=== PATIENT | male | born 1990 | race African-American/Black ===

== ENCOUNTER 2024-11-04 07:57 | Outpatient (CLI) | payer OTHER, SELFPAY ==
--- OUTSIDE RECORDS SUMMARY | 2024-11-04 08:04 | XMS_ITS | Patient Health Record ---
Author Organization [facility] , Address [address] [place] [address] Care Team Providers Care Car Repairer Name Role Phone Luis Fernando Howell MD Primary Care Provider UnavailAdrian Anderson Unavailable [phone] ALLERGIES No Known Allergies REASON FOR REFERRAL Reason ORIF Right Trimalleo lar Equivalent Fracture-Eval & Treat-Ankle Fracture Protocol 2-3 x's per week x 4-6 weeks Diagnosis 1 Orthopedic aftercare (Z47.89) Diagnosis 2 Other specified post procedural states (Z98.890) Diagnosis 3 Personal history of (healed) traumatic fracture (Z87.81) Referral Organization [facility] Referring Provider First Name Adrian Referring Provider Last Name Remy Referring Provider Speciality Orthopedic Surgery Referred Provider Specialty Physical The nella General Notes Talisha Coe 09/10/2024 12:40:26 PM > Please call patient to schedule at an ATR facility convienent for him. Thanks! Clinical Notes Talisha Coe 09/10/2024 12:41:19 PM > Ankle Fracture Post-op Rehabilitation Protocol, This protocol provides you with general guidelines for initial stage and progression of, rehabilitation according to specified time frames, related tissue tolerance and directional, preference of movement. Specific changes in the program will be made by the, physician as appropriate for the individual patient., REMEMBER: It can take up to a year to make a full recovery, and it is not unusual to, have intermittent pains and aches during that time!, General Guidelines:, 1. Increase Dorsiflexion - to restore gait, 2. Monitor PAIN and SWELLING, - If either increase, modify rehab, - OROZCO, - Ankle Pumps, - E-stim if Needed, Goals:, - PWB involved LE with or without one crutch for the first 2 weeks, - DF to neutral, - Control edema, Initiate weight-bearing as tolerated with crutches, 2. AROM for ankle, subtalar, midtarsal joints within pain tolerance, - ankle pumps, - inversion / eversion, - toe crunches, - ankle alphabet, 3. Towel stretch for DF, 4. E-stim with elevation for edema, 5. Retrograde massage, 6. Full Weight bearing without crutches in boot over the next 3 weeks, Phase II (after 8 weeks s/p ORIF):, Goals:, - FWB involved LE, - > 50% AROM all planes involved ankle and subtalar joint, - Control edema, - Minimize complications, - Maintain optimal bone and soft tissue healing environment, 1. Gait training level surfaces with proper tibia advancement, quads activation, , symmetrical weight-bearing, 2. Stationary bike, 3. Grade 1-2 joint mobilizations ankle and subtalar joints, 4. PROM into restricted ranges, 5. Retrograde massage for edema, 6. Continue DF stretches, 7. Theraband DF/PF/inv/ev in open chain, 8. Seated heel raise and BAPS, 9. Manual resistance in open chain for DF/PF/inv/ev and multiplanar motions, 10. Leg extension, 11. Leg Curl, 12. Leg Press, 13. Wall stretch with knee flexed and extended, 14. When FWB:, - Standing BAPS 2 legs, - Standing heel raise, - Minisquat, - One leg balance on floor, Phase III (>10 weeks s/p ORIF):, Goals:, - Full ankle and subtalar AROM, flexibility, - Restore gait on level surfaces, hills, stairs, - Full return to function, 1. CKC theraband exercises (stand on involved leg and perform hip flex/ext/abd/add, with uninvolved LE), 2. BAPS knees bent, - eyes closed, - one leg, 3. Storking, - Eyes open, - Eyes closed, - Floor , - Mat, 4. Standing balance progress:, - Eyes open, - Eyes closed, - Floor , - Mat, - Level, - Incline, - Decline, - with knee flex/ext, 5. Continue phase 2 ex's, 6. Stairmaster, 7. Agility ex's, - Karioke, - Lateral shuffles, - Tandem Walking, 8. Continue gait training, 9. Continue modalities prn, 10. Sport and Job - specific training Referral Priority Routine MEDICATIONS Medication SIG (Take, Route, Frequency, Duration) Notes Start Date End Date Status Valsartan Active Albuterol Active PROBLEMS Problem Type ICD Code Onset Dates Problem Status W/U Status Risk SNOMED Code Notes Problem Injury of right ankle, initial encounter (S99.911A) Active confirmed [id number] Problem Other specified postprocedural states (Z98.890) Active confirmed 604253703 Problem Personal history of (healed) traumatic fracture (Z87.81) Active confirmed 879663686 Problem Orthopedic aftercare (Z47.89) Active confirmed 746161682 Problem Presence of other bone and tendon implants (Z96.7) Active confirmed Presence of orthopedic joint implant (069261032) VITAL SIGNS Height 5'11 in 10/08/2024 Weight 310 lbs 10/08/2024 BMI 43.23 kg/m2 10/08/2024 PROCEDURES Procedure Date Ordered Date Performed Result Body Sit e DME_Walker Boot Tall (L4360) 09/10/2024 N/A Encounters Encounter Location Date Provider Diagnosis [facility] [address] [address] [facility] [place] [address] [address] 07/21/2024 Adrian Remy Injury of right ankl e, initial encounter S99.911A ; Closed trimalleolar fracture of right ankle, initial encounter S82.851A and Ankle fracture, right S82.891[facility] [place] [address] [address] 10/08/[address] [facility] [place] [address] [address] 08/12/2024 Adrian Remy Orthopedic aftercare Z47.89 ; Presence of other bone and tendon implants Z96.7 and Ankle pain, right M25.571 [facility] [address] [facility] [address] [place] [address] 09/10/2024 [facility] Orthopedic aftercare Z47.89 ; Presence of other bone and tendon implants Z96.7 and Ankle pain, right M25.571 [facility] [address] [facility] [address] [place] [address] 10/08/2024 [facility] Orthopedic aftercare Z47.89 ; Presence of other bone and tendon implants Z96.7 and Ankle pain, right M25.571 [facility], [address] [facility] [address] [place] [address] 07/23/2024 [facility] [address] [place] [address] 07/26/2024 [facility] ASSESSMENTS Encounter Date Diagnosis Assessment Notes Treatment Notes Treatment Clinical Notes 07/21/2024 Injury of right ankle, initial encounter (ICD-10 - S99.911A) 07/21/2024 Closed trimalleolar fracture of right ankle, initial encounter (ICD-10 - S82.851A) 08/12/2024 Orthopedic aftercare (ICD-10 - Z47.89) Skin sutures were removed and Steri-Strips applied 1. A short leg nonweightbearing cast was applied with the ankle joint in dorsiflexion, made of plaster material. Cast precautions were given and I was present during the application of the cast. We discussed importance of elevation, signs and symptoms of compartment syndrome. 2. Continue nonweightbearing as instructed on the operative extremity. 3. Follow-up in 4 weeks for Cast removal 4. At the next visit I anticipate dispensing a walking boot with physical therapy prescription 5. Please obtain WB ankle xrays. 6. The patient will contact our office if there is any problems or concerns in the interim. Discussed that swelling is normal at this time in the postop period and may persist months after the procedure but will continue to decrease as they heal. Reviewed post-operative course and post-operative instructions for home care were reviewed in detail. Patient voiced understanding of the condition, home care, and expected healing, and was happy with this treatment plan. Patient is to return to the office in 4 week for further post operative care and was instructed to contact the office sooner if any problems arise. 09/10/2024 Orthopedic aftercare (ICD-10 - Z47.89) Plan: 1. Pt was placed in a Cam walking boot today. Pt can take the boot off for showers, sleep, and range of motion exercises. 2. Pt was provided a physical therapy prescription for range of motion exercises and band strengthening. Pt can progress to weight-bearing exercises as the weight-bearing progresses. 3. Begin gradual WB with PT as tolerated 4. Follow-up in 4 weeks for repeat evaluation and x-rays 5. The patient will contact our office if there is any problems or concerns in the interim. Discussed that swelling is normal at this time in the postop period and may persist months after the procedure but will continue to decrease as they heal. Reviewed post-operative course and post-operative instructions for home care were reviewed in detail. Patient voiced understanding of the condition, home care, and expected healing, and was happy with this treatment plan. Patient is to return to the office in 4 week for further post operative care and was instructed to contact the office sooner if any problems arise. 09/10/2024 Presence of other bone and tendon implants (ICD-10 - Z96.7) 10/08/2024 Orthopedic aftercare (ICD-10 - Z47.89) 10/08/2024 Presence of other bone and tendon implants (ICD-10 - Z96.7) 07/21/2024 Ankle fracture, right (ICD-10 - S82.891A) 08/12/2024 Presence of other bone and tendon implants (ICD-10 - Z96.7) 09/10/2024 Ankle pain, right (ICD-10 - M25.571) 10/08/2024 Ankle pain, right (ICD-10 - M25.571) 08/12/2024 Ankle pain, right (ICD-10 - M25.571) 07/21/2024 Other three views of the right ankle were obtained independently interpreted by me today. These are weight-bearing views. They demonstrate a bimalleolar equivalent ankle fracture with a small posterior malleolar piece. Stress views of the right ankle were obtained and independently interpreted by me today. They demonstrate widening of the mortise and decreased tib-fib overlap with increase tip the clear space. PLAN: We reviewed the patient history, physical exam finding, radiographic findings and recommend the following: At this time it appears that the patient has a Right trimalleolar equivalent ankle fracture. This appears to be unstable. I did recommend surgical intervention for this. This would be an open reduction and fixation of he had a right ankle, syndesmosis repair, possible deltoid repair. We will attempt to fix this on on Friday since that is when we have the operating room time, if the skin looks amenable for surgery. I recommended aggressive elevation and icing to help with this. 2. Patient is interested in pursuing surgical intervention for this. I think that is a reasonable option. 3. Pt was placed back in a boot. 4. We did obtain a stat CT scan to further evaluate the posterior malleolus and evaluate for any other intra-articular pathology. The risks, goals and alternatives the procedure as well as the expected postoperative course, rehab and realistic expectations were discussed in detail with the patient. Risks including but not limited to bleeding, infection, nerve or muscle injury, need for reoperation, risk of development of posttraumatic arthritis in the future, nonunion, malunion and recurrence of deformity and risks associated with anesthesia also discussed. The expected postoperative course was discussed in detail. We have discussed expectations after surgery to include expected physical therapy, anticipated shoe wear and the expected duration of swelling. All their questions were answered, they understand and wish to proceed. All questions were answered. Patient was in agreement with the plan. Patient was encouraged to call us if there is no improvement in symptoms, worsening of symptoms or have any questions or concerns. 08/12/2024 Other three views of the right ankle were obtained and independently interpreted by me today. These are nonweightbearing views. They demonstrate status post right distal fibula ORIF with syndesmotic fixation. Hardware appears to be well aligned. The mortise seems to be well-maintained. 09/10/2024 Other Radiographs of the right ankle were obtained and independently interpreted by me today. They demonstrate status post ORIF right distal fibula fracture with syndesmotic fixation. Mortise is well-maintained. Healing fracture. 10/08/2024 Other Three weightbearing views of the Right ankle were obtained and independently interpreted by me today. They demonstrate status post ORIF of right ankle. Hardware appears to be intact. Mortise appears to be intact and syndesmosis appears to be intact. Fracture is fully healed. Humberto Has done very well with operative intervention for his unstable Ruiz B distal fibula fracture. He seems to be progressing along well with therapy. He has unfortunately gone to only 4 therapy visits as it is been financially draining for him. As a result of that he has some tightness over his posterior column which I recommended that he work aggressively at home. I think it is okay to go to therapy as much as he can afford to go to in the rest he can do at home. I think overall he looks well clinically and he should slowly be able to return back to full activities as tolerated as long as he continues to work on it at home. No concerns from my end. Follow up with me in 6 weeks for repeat weight-bearing radiographs. Plan: 1. Pt was placed in a Cam walking boot today. Pt can take the boot off for showers, sleep, and range of motion exercises. 2. Pt was provided a physical therapy prescription for range of motion exercises and band strengthening. Pt can progress to weight-bearing exercises as the weight-bearing progresses. 3. Begin gradual WB with PT as tolerated 4. Follow-up in 4 weeks for repeat evaluation and x-rays 5. The patient will contact our office if there is any problems or concerns in the interim. Discussed that swelling is normal at this time in the postop period and may persist months after the procedure but will continue to decrease as they heal. Reviewed post-operative course and post-operative instructions for home care were reviewed in detail. Patient voiced understanding of the condition, home care, and expected healing, and was happy with this treatment plan. Patient is to return to the office in 4 week for further post operative care and was instructed to contact the office sooner if any problems arise. 10/08/2024 Other X-rays of the ankle were obtained and independently interpreted by me today. They demonstrate a stable healing distal fibula fracture with syndesmosis ORIF. Mortise and syndesmosis appear to be well-maintained. PLAN OF TREATMENT Pending Test Test Name Order Date X ray : Ankle 3 views R, AP, Oblique, La teral 08/12/2024 X ray : Ankle 3 views R, AP, Oblique, La teral 09/10/2024 X ray : Ankle 3 views R, AP, Oblique, La teral 10/08/2024 X ray : Ankle 3 views R, AP, Oblique, La teral 07/21/2024 DME_Walker Boot Tall (L4360) 09/10/2024 CT Scan: Right Ankle 07/21/2024 Next Appt Details Provider Name:Adrian Alberto, 11/12/2024 08:15:00 AM, [address], [facility] [address], [place], [address], Insurance Providers Payer Name Payer Address Payer Phone Subscriber Number Group Number Insured Name Patient Relationship to Insured Coverage Start Date Coverage End Date [employer] [address] [place] [phone] [id number] Humberto Elliott Self - patient is the insured MEDICAL (GENERAL) HISTORY Medical History History ICD Code HTN Asthma Surgical History Surgery Date(Month/Year) ORIF Right Trimalleolar Equivalent Fract ure 07/26/2024
--- OUTSIDE RECORDS SUMMARY | 2024-11-04 08:04 | XMS_ITS ---
Author Organization [facility], Address [address] [address] Care Team Providers Care Finance Controller Name Role Phone Luis Fernando Howell MD Primary Care Provider UnavailAdrian Anderson Unavailable [phone] REASON FOR VISIT ORIF Right Trimalleolar Ankle Fracture F/U MEDICATIONS Medication SIG (Take, Route, Frequency, Duration) Notes Start Date End Date Status Albuterol Active Valsartan Active VITAL SIGNS BMI 43.23 kg/m2 10/08/2024 Height 5'11 in 10/08/2024 Weight 310 lbs 10/08/2024 Encounters Encounter Location Date Provider Diagnosis [facility] [place] [address] [facility] [address] [address] 10/08/2024 Adrian Alberto Orthopedic aftercar e Z47.89 ; Presence of other bone and tendon implants Z96.7 and Ankle pain, right M25.571 ASSESSMENTS Encounter Date Diagnosis Assessment Notes Treatment Notes Treatment Clinical Notes 10/08/2024 Orthopedic aftercare (ICD-10 - Z47.89) 10/08/2024 Presence of other bone and tendon implants (ICD-10 - Z96.7) 10/08/2024 Ankle pain, right (ICD-10 - M25.571) 10/08/2024 Other Three weightbearing views of the [...] the office sooner if any problems arise. PLAN OF TREATMENT Pending Test Test Name Order Date X ray : Ankle 3 views R, AP, Oblique, La teral 10/08/2024 Next Appt Details Follow Up: 4 Weeks, 6 Weeks, Reason: Provider Name:Adrian Alberto, 11/12/2024 08:15:00 AM, [address], [facility] [address], [place], [address],
--- OUTSIDE RECORDS SUMMARY | 2024-11-04 08:04 | XMS_ITS | Continuity of Care Document ---
Author Organization [facility] Address [address] [facility] [address] [place] [address] Phone Care Team Providers Care Hardboard Panel Printer Name Role Phone [place] OD, Reji Unavailable Unavailable Advance Directives Directive Yes / No Effective Date File Name No Information Encounters Encounter Description Practice Location Reason(s) For Visit Diagnoses Date Provider Providers Copied on Encounter [facility], [address], [place], [place], [id number], [place] tel:[phone] [facility] [place] No Information 1-200 0 Hat[place] OD Reji. [address] , [address], [place], [address], [place]. tel:[phone] Family History Family Member Type Diagnosis Age At Onset No Information Payers Payer name Insurance type Covered alliance party ID Authoriza tion(s) Medicaid [facility] [id number] Social History Type Description Quantity Date Captured Comments Sex Male Smoking Status No Information Chief Complaint And Reason For Visit No Information Reason For Referral Reason For Referral No Information History Of Present Illness Encounter Date Complaint History Of Prese nt Illness No Information Functional Status Date Functional Assessmen t No Information Instructions Date Instruction Additional Infor mation No Information Assessments Type Assessment Date No Information Patient Care Teams Name Effective Dates (start - stop) Status Members No Information
--- OUTSIDE RECORDS SUMMARY | 2024-11-04 08:04 | XMS_ITS ---
Author Organization [facility], Address [address] [facility] [address] [place] [address] Care Team Providers Care Attending Psychiatrist Name Role Phone Luis Fernando Howell MD Primary Care Provider Unavailab Adrian Olvera Unavailable [phone] Encounters Encounter Location Date Provider Diagnosis [facility] [address] [facility] [address] [place] [address] 09/10/2024 Adrian Alberto PLAN OF TREATMENT Next Appt Details Provider Name:Adrian Alberto, 11/12/2024 08:15:00 AM, [address], [address], [place], [address],
--- OUTSIDE RECORDS SUMMARY | 2024-11-04 08:04 | XMS_ITS ---
Author Organization [facility], Address [address] [facility] [address] [place] [address] Care Team Providers Care Social Services Specialist Name Role Phone Luis Fernando Howell MD Primary Care Provider UnavailAdrian Anderson Unavailable [phone] REASON FOR VISIT FMLA MEDICATIONS Medication SIG (Take, Route, Frequency, Duration) Notes Start Date End Date Status Valsartan Active Albuterol Active VITAL SIGNS BMI 43.23 kg/m2 10/08/2024 Height 5'11 in 10/08/2024 Weight 310 lbs 10/08/2024 Encounters Encounter Location Date Provider Diagnosis [facility] [place] [address] [facility] [address] [place] [address] 10/08/2024 Adrian Alberto ASSESSMENTS Encounter Date Diagnosis Assessment Notes Treatment Notes Treatment Clinical Notes 10/08/2024 Other X-rays of the ankle were obtained and independently interpreted by me today. They demonstrate a stable healing distal fibula fracture with syndesmosis ORIF. Mortise and syndesmosis appear to be well-maintained. PLAN OF TREATMENT Next Appt Details Follow Up: 6 Weeks, Reason: Provider Name:Adrian Alberto, 11/12/2024 08:15:00 AM, [address], [address], [place], [address],
--- OUTSIDE RECORDS SUMMARY | 2024-11-04 08:04 | XMS_ITS | Data Portability ---
[facility] Address [address] [place] [address] Assessment No assessment recorded. Plan of Treatment Reminders Order Date Submit Date Provider Last Modified By Organization Details Last Modified Time Details Appointments None recorded. Lab HbA1c (hemoglobin A1c), blood 2023 024 [facility], [address], [place], [address], 4 15:24:14 CBC w/ auto diff 2023 024 [facility], [address], [place], [address], 4 15:24:13 lipid panel, serum 2023 024 [facility], [address], [place], [address], 4 14:22:24 lipid panel, serum 2023 024 [facility], [address], [place], [address], 4 15:24:13 CMP, serum or plasma 2023 024 [facility], [address], [place], [address], 4 15:24:13 urinalysis, dipstick 2023 024 [facility], [address], [place], [address], 4 15:24:13 25-hydroxyv itamin D2 + 25-hydroxyv itamin D3, QN, serum or plasma 2023 024 [facility], [address], [place], [address], 4 12:49:38 TSH, ultra-sensi tive, serum 2023 024 [facility], [address], [place], [address], 4 15:24:13 RPR (rapid plasma reagin), serum 2023 024 [facility] [address], [place], [address], 4 09:53:36 HIV 1 + 2, meaningful use set 2023 024 [facility], [address], [place], [address], 4 09:53:41 CT + NG RNA, PCR, unspecified specimen 2023 024 [facility], [address], [place], [address], 4 09:53:46 HBsAg (hepatitis B surface Ag), EIA, serum 2023 024 [facility], [address], [place], [address], 4 22:07:02 hsv (1+2) igg, serum 2023 024 [facility], [address], [place], [address], 4 10:15:13 Referral sleep medicine referral - Hx of HTN, snorer with apneic episodes 2023 024 THOMAS Hutchinson MD, [address] [facility], [place], [address], 18:58:29 Procedures None recorded. Surgeries None recorded. Imaging None recorded. Medication Orders valsartan 320 mg-hydrochl orothiazide [address] [facility] #[id number], [address], [place], [address], 4 10:05:23 Ventolin HFA 90 mcg/actuati on aerosol inhaler [address] [facility] #[id number], [address], [place], [address], 4 13:18:06 valsartan 320 mg-hydrochl orothiazide 12.5 mg tablet 2023 024 [facility]/Pharmacy #[id number], [address], [place], [address], 4 10:07:12 valsartan 160 mg-hydrochl orothiazide 12.5 mg tablet 2023 [facility]24 [id number], [address], [place], [address], 4 13:18:10 Patient TargetsNo targets recorded. Patient Instructions Encounter Date Encounter Id Patient Instructions Last Modified By Organization Details Last Modified Time 08/21/2023 [id number] body mass index: care instructions oajao Not available 08/21/2023 16:17:16 learning about healthy weight oajao Not available 08/21/2023 16:17:16 snoring: care instructions oajao Not available 08/21/2023 16:13:44 Valsartan/HCTZ 160/12.5 Labs Follow up in 3 weeks and PRN oajao Not available 08/21/2023 16:18:04 Compliance was reinforced oajao Not available 08/21/2023 21:49:56 02/06/2024 [id number] Follow up in 3-4 weeks oajao Not available 02/06/2024 13:19:14 06/01/2024 [id number] influenza (flu) vaccine: care instructions oajao Not available 06/01/2024 10:55:14 Increase Valsartan/HCTZ to 320/25 Sleep medicine as referred Follow up in 2 weeks oajao Not available 06/01/2024 12:28:18 Reason for Referral Sleep Medicine Referral for Apnea Hx of HTN, snorer with apneic episodes Hx of HTN, snorer with apneic episodes Referring Physician: Luis Fernando Howell, Internal Medicine, Encounter Date: 08/21/2023 Results Created Date Observation Date Name Description Value Unit Range Abnormal Flag Note LastModifiedBy Organization Detail LastModifiedTime 12/29/19 22 12/29/2021 CBC WITH DIFFE RENTI AL/PL ATELE T WBC 4.5 x10e3 /uL 3.4-10 .8 Not Available [facility] ([facility]) [address] [place], [address], 12/29/2021 08:15:45 12/29/19 22 12/29/2021 CBC WITH DIFFE RENTI AL/PL ATELE T RBC 5.08 x10e6 /uL 4.14-5 .80 Not Available [facility] ([facility]) [address] [place], [address], 12/29/2021 08:15:45 12/29/19 22 12/29/2021 CBC WITH DIFFE RENTI AL/PL ATELE T hemoglobin 16.1 g/dL 13.0-1 7.7 Not Available [facility] ([facility]) [address] [place], [address], 12/29/2021 08:15:45 05/20/20 22 12/29/2021 CBC WITH DIFFE RENTI AL/PL ATELE T hematocrit 48.6 % 37.5-5 1.0 Not Available [facility] ([facility]) [address] [facility], [place], [address], 12/29/2021 08:15:45 12/29/19 22 12/29/2021 CBC WITH DIFFE RENTI AL/PL ATELE T MCV 96 fL 79-97 Not Available [facility] ([facility]) [address] [facility], [place], [address], 12/29/2021 08:15:45 12/29/19 22 12/29/2021 CBC WITH DIFFE RENTI AL/PL ATELE T MCH 31.7 pg 26.6-3 3.0 Not Available [facility] ([facility]) [address] [facility], [place], [address], 12/29/2021 08:15:45 12/29/19 22 12/29/2021 CBC WITH DIFFE RENTI AL/PL ATELE T MCHC 33.1 g/dL 31.5-3 5.7 Not Available [facility] ([facility]) [address] [facility], [place], [address], 12/29/2021 08:15:45 12/29/19 22 12/29/2021 CBC WITH DIFFE RENTI AL/PL ATELE T RDW 12.9 % 11.6-1 5.4 Not Available [facility] ([facility]) [address] [place], [address], 12/29/2021 08:15:45 12/29/19 22 12/29/2021 CBC WITH DIFFE RENTI AL/PL ATELE T platelets 238 x10e3 /uL 150-45 0 Not Available [facility] ([facility]) [address] [place], [address], 12/29/2021 08:15:45 12/29/19 22 12/29/2021 CBC WITH DIFFE RENTI AL/PL ATELE T neutrophils 33 % not estab. Not Available [facility] ([facility]) [address] [facility], [place], [address], 12/29/2021 08:15:45 12/29/19 22 12/29/2021 CBC WITH DIFFE RENTI AL/PL ATELE T lymphs 54 % not estab. Not Available [facility] ([facility]) [address] [facility], [place], [address], 12/29/2021 08:15:45 12/29/19 22 12/29/2021 CBC WITH DIFFE RENTI AL/PL ATELE T monocytes 8 % not estab. Not Available [facility] ([facility]) [address] [facility], [place], [address], 12/29/2021 08:15:45 12/29/19 22 12/29/2021 CBC WITH DIFFE RENTI AL/PL ATELE T eos 4 % not estab. Not Available [facility] ([facility]) [address] [facility], [place], [address], 12/29/2021 08:15:45 12/29/19 22 12/29/2021 CBC WITH DIFFE RENTI AL/PL ATELE T basos 1 % not estab. Not Available [facility] ([facility]) [address] [facility], [place], [address], 12/29/2021 08:15:45 12/29/19 22 12/29/2021 CBC WITH DIFFE RENTI AL/PL ATELE T immature cells ROUSTABOUT CREW Not Available [facility] ([facility]) [address] [facility], [place], [address], 12/29/2021 08:15:45 12/29/19 22 12/29/2021 CBC WITH DIFFE RENTI AL/PL ATELE T neutrophils (absolute) 1.5 x10e3 /uL 1.4-7. 0 Not Available [facility] ([facility]) [address] [facility], [place], [address], 12/29/2021 08:15:45 12/29/19 22 12/29/2021 CBC WITH DIFFE RENTI AL/PL ATELE T lymphs (absolute) 2.5 x10e3 /uL 0.7-3. 1 Not Available [facility] ([facility]) [address] [facility], [place], [address], 12/29/2021 08:15:45 12/29/19 22 12/29/2021 CBC WITH DIFFE RENTI AL/PL ATELE T monocytes(ab solute) 0.4 x10e3 /uL 0.1-0. 9 Not Available [facility] ([facility]) [address] [facility], [place], [address], 12/29/2021 08:15:45 12/29/19 22 12/29/2021 CBC WITH DIFFE RENTI AL/PL ATELE T eos (absolute) 0.2 x10e3 /uL 0.0-0. 4 Not Available [facility] ([facility]) [address] [place], [address], 12/29/2021 08:15:45 12/29/19 22 12/29/2021 CBC WITH DIFFE RENTI AL/PL ATELE T baso (absolute) 0.0 x10e3 /uL 0.0-0. 2 Not Available [facility] ([facility]) [address] [facility], [place], [address], 12/29/2021 08:15:45 12/29/19 22 12/29/2021 CBC WITH DIFFE RENTI AL/PL ATELE T immature granulocytes 0 % not estab. Not Available [facility] ([facility]) [address] [facility], [place], [address], 12/29/2021 08:15:45 12/29/19 22 12/29/2021 CBC WITH DIFFE RENTI AL/PL ATELE T immature grans (abs) 0.0 x10e3 /uL 0.0-0. 1 Not Available [facility] ([facility]) [address] [facility], [place], [address], 12/29/2021 08:15:45 12/29/19 22 12/29/2021 CBC WITH DIFFE RENTI AL/PL ATELE T NRBC ROUSTABOUT CREW Not Available [facility] ([facility]) [address] [facility], [place], [address], 12/29/2021 08:15:45 12/29/19 22 12/29/2021 CBC WITH DIFFE RENTI AL/PL ATELE T hematology comments: ROUSTABOUT CREW Not Available [facility] ([facility]) [address] [place], [address], 12/29/2021 08:15:45 12/29/19 22 12/29/2021 COMP. METAB OLIC PANEL (14) glucose 85 mg/dL 65-99 Not Available [facility] ([facility]) [address] [place], [address], 12/29/2021 08:15:45 12/29/19 22 12/29/2021 COMP. METAB OLIC PANEL (14) BUN 12 mg/dL 6-20 Not Available [facility] ([facility]) [address] [place], [address], 12/29/2021 08:15:45 12/29/19 22 12/29/2021 COMP. METAB OLIC PANEL (14) creatinine 1.05 mg/dL 0.76-1 .27 Not Available [facility] ([facility]) [address] [place], [address], 12/29/2021 08:15:45 12/29/19 22 12/29/2021 COMP. METAB OLIC PANEL (14) eGFR 98 mL/mi n/1.7 3 >59 Not Available [facility] ([facility]) [address] [place], [address], 12/29/2021 08:15:45 12/29/19 22 12/29/2021 COMP. METAB OLIC PANEL (14) BUN/creatini ne ratio 11 9-20 Not Available [facility] ([facility]) [address] [facility], [address], 12/29/2021 08:15:45 12/29/19 22 12/29/2021 COMP. METAB OLIC PANEL (14) sodium 139 mmol/ L 134-14 4 Not Available [facility] ([facility]) [address] [facility] [place], [address], 12/29/2021 08:15:45 12/29/19 22 12/29/2021 COMP. METAB OLIC PANEL (14) potassium 4.6 mmol/ L 3.5-5. 2 Not Available [facility] ([facility]) [address] [facility] [place], [address], 12/29/2021 08:15:45 12/29/19 22 12/29/2021 COMP. METAB OLIC PANEL (14) chloride 100 mmol/ L 96-106 Not Available [facility] ([facility]) [address] [facility] [place], [address], 12/29/2021 08:15:45 12/29/19 22 12/29/2021 COMP. METAB OLIC PANEL (14) carbon dioxide, total 23 mmol/ L 20-29 Not Available [facility] ([facility]) [address] [facility] [place], [address], 12/29/2021 08:15:45 12/29/19 22 12/29/2021 COMP. METAB OLIC PANEL (14) calcium 9.4 mg/dL 8.7-10 .2 Not Available [facility] ([facility]) [address] [facility] [place], [address], 12/29/2021 08:15:45 12/29/19 22 12/29/2021 COMP. METAB OLIC PANEL (14) protein, total 7.2 g/dL 6.0-8. 5 Not Available [facility] ([facility]) [address] [facility], [place], [address], 12/29/2021 08:15:45 12/29/19 22 12/29/2021 COMP. METAB OLIC PANEL (14) albumin 4.7 g/dL 4.1-5. 2 Not Available [facility] ([facility]) [address] [facility], [place], [address], 12/29/2021 08:15:45 12/29/19 22 12/29/2021 COMP. METAB OLIC PANEL (14) globulin, total 2.5 g/dL 1.5-4. 5 Not Available [facility] ([facility]) [address] [facility], [place], [address], 12/29/2021 08:15:45 12/29/19 22 12/29/2021 COMP. METAB OLIC PANEL (14) A/G ratio 1.9 1.2-2. 2 Not Available [facility] ([facility]) [address] [facility], [place], [address], 12/29/2021 08:15:45 12/29/19 22 12/29/2021 COMP. METAB OLIC PANEL (14) bilirubin, total 0.7 mg/dL 0.0-1. 2 Not Available [facility] ([facility]) [address] [facility], [place], [address], 12/29/2021 08:15:45 12/29/19 22 12/29/2021 COMP. METAB OLIC PANEL (14) alkaline phosphatase 83 IU/L 44-121 Not Available [facility] ([facility]) [address] [facility], [place], [address], 12/29/2021 08:15:45 12/29/19 22 12/29/2021 COMP. METAB OLIC PANEL (14) AST (SGOT) 20 IU/L 0-40 Not Available [facility] ([facility]) [address] [facility] [place], [address], 12/29/2021 08:15:45 12/29/19 22 12/29/2021 COMP. METAB OLIC PANEL (14) ALT (SGPT) 22 IU/L 0-44 Not Available [facility] ([facility]) [address] [facility], [place], [address], 12/29/2021 08:15:45 12/29/19 22 12/29/2021 URINA LYSIS , COMPL ETE specific gravity 1.028 1.005- 1.030 Not Available [facility] ([facility]) [address] [facility], [place], [address], 12/29/2021 08:15:46 12/29/19 22 12/29/2021 URINA LYSIS , COMPL ETE pH 7.0 5.0-7. 5 Not Available [facility] ([facility]) [address] [facility], [place], [address], 12/29/2021 08:15:46 12/29/19 22 12/29/2021 URINA LYSIS , COMPL ETE urine-color Yellow yellow Not Available [facility] ([facility]) [address] [facility], [place], [address], 12/29/2021 08:15:46 12/29/19 22 12/29/2021 URINA LYSIS , COMPL ETE appearance Clear clear Not Available [facility] ([facility]) [address] [facility], [address], 12/29/2021 08:15:46 12/29/19 22 12/29/2021 URINA LYSIS , COMPL ETE WBC esterase Negati ve negati ve Not Available [facility] ([facility]) [address] [facility], [place], [address], 12/29/2021 08:15:46 12/29/19 22 12/29/2021 URINA LYSIS , COMPL ETE protein Trace negati ve/tra ce Not Available [facility] ([facility]) [address] [place], [address], 12/29/2021 08:15:46 12/29/19 22 12/29/2021 URINA LYSIS , COMPL ETE glucose Negati ve negati ve Not Available [facility] ([facility]) [address] [place], [address], 12/29/2021 08:15:46 12/29/19 22 12/29/2021 URINA LYSIS , COMPL ETE ketones Negati ve negati ve Not Available [facility] ([facility]) [address] [place], [address], 12/29/2021 08:15:46 12/29/19 22 12/29/2021 URINA LYSIS , COMPL ETE occult blood Negati ve negati ve Not Available [facility] ([facility]) [address] [place], [address], 12/29/2021 08:15:46 12/29/19 22 12/29/2021 URINA LYSIS , COMPL ETE bilirubin Negati ve negati ve Not Available [facility] ([facility]) [address] [place], [address], 12/29/2021 08:15:46 12/29/19 22 12/29/2021 URINA LYSIS , COMPL ETE urobilinogen ,semi-qn 1.0 mg/dL 0.2-1. 0 Not Available [facility] ([facility]) [address] [place], [address], 12/29/2021 08:15:46 12/29/19 22 12/29/2021 URINA LYSIS , COMPL ETE nitrite, urine Negati ve negati ve Not Available [facility] ([facility]) [address] [place], [address], 12/29/2021 08:15:46 12/29/19 22 12/29/2021 URINA LYSIS , COMPL ETE microscopic examination Commen t Micro scopi c follo ws if indic ated. Not Available [facility] ([facility]) [address] [facility], [place], [address], 12/29/2021 08:15:46 12/29/19 22 12/29/2021 URINA LYSIS , COMPL ETE microscopic examination See below: Micro scopi c was indic ated and was perfo rmed. Not Available [facility] ([facility]) [address] [facility], [place], [address], 12/29/2021 08:15:46 12/29/19 22 12/29/2021 URINA LYSIS , COMPL ETE WBC None seen /hpf 0 - 5 Not Available [facility] ([facility]) [address] [facility], [place], [address], 12/29/2021 08:15:46 12/29/19 22 12/29/2021 URINA LYSIS , COMPL ETE RBC 0-2 /hpf 0 - 2 Not Available [facility] ([facility]) [address] [facility], [place], [address], 12/29/2021 08:15:46 12/29/19 22 12/29/2021 URINA LYSIS , COMPL ETE epithelial cells (non renal) None seen /hpf 0 - 10 Not Available [facility] ([facility]) [address] [facility], [place], [address], 12/29/2021 08:15:46 12/29/19 22 12/29/2021 URINA LYSIS , COMPL ETE epithelial cells (renal) ROUSTABOUT CREW Not Available [facility] ([facility]) [address] [facility], [place], [address], 12/29/2021 08:15:46 12/29/19 22 12/29/2021 URINA LYSIS , COMPL ETE casts None seen /lpf none seen Not Available [facility] ([facility]) [address] [facility], [place], [address], 12/29/2021 08:15:46 12/29/19 22 12/29/2021 URINA LYSIS , COMPL ETE cast type ROUSTABOUT CREW Not Available [facility] ([facility]) [address] [facility], [place], [address], 12/29/2021 08:15:46 12/29/19 22 12/29/2021 URINA LYSIS , COMPL ETE crystals ROUSTABOUT CREW Not Available [facility] ([facility]) [address] [facility], [place], [address], 12/29/2021 08:15:46 12/29/19 22 12/29/2021 URINA LYSIS , COMPL ETE crystal type ROUSTABOUT CREW Not Available [facility] ([facility]) [address] [facility], [place], [address], 12/29/2021 08:15:46 12/29/19 22 12/29/2021 URINA LYSIS , COMPL ETE mucus threads ROUSTABOUT CREW Not Available [facility] ([facility]) [address] [facility], [place], [address], 12/29/2021 08:15:46 12/29/19 22 12/29/2021 URINA LYSIS , COMPL ETE bacteria None seen none seen/f ew Not Available [facility] ([facility]) [address] [facility], [place], [address], 12/29/2021 08:15:46 12/29/19 22 12/29/2021 URINA LYSIS , COMPL ETE yeast ROUSTABOUT CREW Not Available [facility] ([facility]) [address] [facility], [place], [address], 12/29/2021 08:15:46 12/29/19 22 12/29/2021 URINA LYSIS , COMPL ETE trichomonas ROUSTABOUT CREW Not Available [facility] ([facility]) [address] [place], [address], 12/29/2021 08:15:46 12/29/19 22 12/29/2021 URINA LYSIS , COMPL ETE comment ROUSTABOUT CREW Not Available [facility] ([facility]) [address] [place], [address], 12/29/2021 08:15:46 12/29/19 22 12/29/2021 LIPID PANEL cholesterol, total 189 mg/dL 100-19 9 Not Available [facility] ([facility]) [address] [place], [address], 12/29/2021 08:15:46 12/29/19 22 12/29/2021 LIPID PANEL triglyceride s 92 mg/dL 0-149 Not Available [facility] ([facility]) [address] [place], [address], 12/29/2021 08:15:46 12/29/19 22 12/29/2021 LIPID PANEL HDL cholesterol 45 mg/dL >39 Not Available [facility] ([facility]) [address] [place], [address], 12/29/2021 08:15:46 12/29/19 22 12/29/2021 LIPID PANEL VLDL cholesterol rip 17 mg/dL 5-40 Not Available [facility] ([facility]) [address] [place], [address], 12/29/2021 08:15:46 12/29/19 22 12/29/2021 LIPID PANEL LDL chol calc ([facility]) 127 mg/dL 0-99 above high normal Not Available [facility] ([facility]) [address] [place], [address], 12/29/2021 08:15:46 12/29/19 22 12/29/2021 LIPID PANEL comment: ROUSTABOUT CREW Not Available [facility] ([facility]) [address] [facility], [place], [address], 12/29/2021 08:15:46 12/29/1912/29/2021 HEMOG LOBIN A1C hemoglobin A1C 5.3 % 4.8-5. 6 Predi abete s: 5.7 - 6.4 Diabe joy: >6.4 Glyce andrew contr ol for adult s with diabe joy: <7.0 Not Available [facility] ([facility]) [address] [facility], [place], [address], 12/29/2021 08:15:47 12/29/19 22 12/29/2021 TSH TSH 0.687 uIU/m L 0.450- 4.500 Not Available [facility] ([facility]) [address] [facility], [place], [address], 12/29/2021 08:15:47 12/29/19 22 12/29/2021 HIV AB/P2 4 AG WITH REFLE X HIV Ab/P24 Ag screen Non Reacti ve non reacti ve HIV Negat helen HIV-1 /HIV- 2 antib odies and HIV-1 p24 antig en were NOT detec elysia. There is no labor atory evide nce of HIV infec tion. Not Available [facility] ([facility]) [address] [facility], [place], [address], 12/29/2021 08:15:48 12/29/19 22 12/29/2021 HCV ANTIB IDRIS hep C virus Ab 0.1 s/co_ ratio 0.0-0. 9 Negat helen: < 0.8 Indet ermin ate: 0.8 - 0.9 Posit helen: > 0.9 HCV antib idris alone does not diffe renti ate betwe en previ ous resol giovanni infec tion and activ e infec tion. The CDC and curre nt clini rip guide lines recom mend that a posit helen HCV antib idris resul t be follo wed up with an HCV RNA test to suppo rt the diagn osis of acute HCV infec tion. [facility] offer s Hepat itis C Virus (HCV) RNA, Diagn osis, SEAN (2173 02) and Hepat itis C Virus (HCV) Antib idris with refle x to Quant itati ve Real- time PCR (4570 50). Not Available [facility] ([facility]) [address] [facility], [place], [address], 12/29/2021 08:15:48 Result Notes None recorded. Problems Name Problem SNOMED Code Status Onset Date Resolution Date Notes Provider Name and Address Organization Details Recorded Time History of SARS-CoV -2 [id number] 05 Active 2023 Luis Fernando Howell MD Attn: Billie akhtar,[address] [facility] [address] [address], [place], [address], [facility] 21:42:24 Problem Notes None recorded. Medical Equipment None Reported. Allergies No known drug allergies Medications Name Sig Start Date Stop Date Status Note LastModified by Organization Details LastModified Time cyclobenz aprine 10 mg tablet 01/19 completed Not Available Not Available Not Available venlafaxi ne ER 37.5 mg capsule,e xtended release 24 hr TAKE 1 CAPSULE BY MOUTH EVERY DAY X7 DAYS 08/21 completed Not Available Not Available Not Available venlafaxi ne ER 75 mg capsule,e xtended release 24 hr TAKE 1 CAPSULE BY MOUTH DAILY-TA KE WITH FOOD. 08/21 completed Not Available Not Available Not Available cetirizin e 10 mg tablet TAKE 1 TABLET BY MOUTH EVERY DAY 08/21 completed Not Available Not Available Not Available Lidocaine Viscous 2 % mucosal solution 05/14 completed Not Available Not Available Not Available valsartan 160 mg-hydroc hlorothia zide 12.5 mg tablet TAKE 1 TABLET BY MOUTH EVERY DAY DIRECTED 02/05 completed Increase d to 320/12.5 Not Available Not Available Not Available clindamyc in HCl 150 mg capsule TAKE 3 CAPSULES BY MOUTH THREE TIMES DAILY 05/14 completed Not Available Not Available Not Available valsartan 80 mg-hydroc hlorothia zide 12.5 mg tablet TAKE 1 TABLET BY MOUTH EVERY DAY 06/28 /2024 completed Not Available Not Available Not Available cephalexi n 500 mg capsule TAKE 1 CAPSULE BY MOUTH EVERY 8 HOURS FOR 10 DAYS 05/14 completed Not Available Not Available Not Available polymyxin B sulfate 10,000 unit-trim ethoprim 1 mg/mL eye drops PLACE 1 DROP IN RIGHT EYE EVERY 3 HOURS WHILE AWAKE FOR 7 DAYS. 08/21 completed Not Available Not Available Not Available methylpre dnisolone 4 mg tablets in a dose pack 08/21 completed Not Available Not Available Not Available albuterol sulfate HFA 90 mcg/actua tion aerosol inhaler Inhale 2 puffs every 4 hours by inhalati on route as needed for 30 days, for Asthma. active Not Available Not Available No t Available naproxen 500 mg tablet TAKE 1 TABLET BY MOUTH TWICE DAILY WITH FOOD 05/14 completed Not Available Not Available Not Available amoxicill in 875 mg-potass ium clavulana te 125 mg tablet 08/21 completed Not Available Not Available Not Available neomycin- polymyxin -hydrocor t 3.5 mg-10,000 unit/mL-1 % ear drops,loli p 08/21 completed Not Available Not Available Not Available valsartan 320 mg-hydroc hlorothia zide 25 mg tablet TAKE 1 TABLET BY MOUTH EVERY DAY IN THE MORNING FOR HIGH BLOOD PRESSURE active Not Available Not Available No t Available valsartan 320 mg-hydroc hlorothia zide 12.5 mg tablet TAKE 1 TABLET BY MOUTH EVERY DAY active Not Available Not Available No t Available Paxlovid 300 mg (150 mg x 2)-100 mg tablets in a dose pack TAKE 3 TABLETS 2 TIMES A DAY 08/21 completed Not Available Not Available Not Available Vitals Date Recorded Body height Body mass index (BMI) Body weight Heart rate Oxygen saturation Oxygen saturation in Arterial blood by Pulse oximetry Respiratory rate Body temperature Systolic blood pressure Diastolic blood pressure Provider Name and Address Organization Details Last Updated DateTime 2 180.34 cm 39.4 kg/m2 690686. 49 g 94 /min 98 % 98 % 14 /min 98.6 [degF] 140 mm[Hg] 76 mm[Hg] Reta Mccoy [place] [facility] 2 16:00:55 Date Recorded Body height Body mass index (BMI) Body weight Oxygen saturation Oxygen saturation in Arterial blood by Pulse oximetry Heart rate Respiratory rate Body temperature Systolic blood pressure Diastolic blood pressure Provider Name and Address Organization Details Last Updated DateTime 4 180.34 cm 44.5 kg/m2 077611. 97 g 98 % 98 % 102 /min 18 /min 98.1 [degF] 140 mm[Hg] 90 mm[Hg] Reta Mccoy MA [facility] 4 16:03:12 Date Recorded Body height Body mass index (BMI) Body weight Heart rate Oxygen saturation Oxygen saturation in Arterial blood by Pulse oximetry Respiratory rate Systolic blood pressure Diastolic blood pressure Provider Name and Address Organization Details Last Updated DateTime 4 180.34 cm 44.4 kg/m2 514610. 89 g 112 /min 98 % 98 % 16 /min 144 mm[Hg] 90 mm[Hg] Reta Mccoy MA [facility] 4 12:46:33 Date Recorded Body height Body mass index (BMI) Body weight Respiratory rate Heart rate Oxygen saturation Oxygen saturation in Arterial blood by Pulse oximetry Systolic blood pressure Diastolic blood pressure Provider Name and Address Organization Details Last Updated DateTime 4 180.34 cm 43.7 kg/m2 382604. 21 g 18 /min 88 /min 99 % 99 % 144 mm[Hg] 90 mm[Hg] Reta Mccoy MA [facility] 4 09:43:42 Social History Question Answer Notes LastModified by Organizat ion Details LastModified Time Tobacco Smoking Status Former Smoker Quit Aug 11 08/11/2023 Luis Fernando Howell MD Attn: Accounting[address] [place], [address], [facility] 08/21/2023 16:08:21 What Is Your Level Of Alcohol Consumption? Occasional Information not available 05/31/2019 What Is Your Level Of Caffeine Consumption? Heavy Information not available 05/31/2019 How Much Tobacco Do You Chew? None Information not available 05/31/2019 What Type Of Diet Are You Following? REGULAR Information not available 05/31/2019 Do You Or Have You Ever Used E-cigarettes Or Vape? 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 No Information not available 05/31/2019 Hard Of Hearing Or Deaf In One Or Both Ears? No Information not available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
--- OUTSIDE RECORDS SUMMARY | 2024-11-04 08:04 | XMS_ITS | Data Portability ---
Author Organization [facility] [employer], Main Office Address [address] [place] [address] Assessment Encounter Date Assessment Date Assessment LastModified by Organization Details LastModified Time 07/12/2024 07/12/2024 Assessment: JAMIE PLMD Hypoventilation Plan: The following were reviewed and explained to the patient: primary care/referral note General information on sleep disordered breathing, evaluation of sleep disordered breathing, treatment with PAP therapy, and living with PAP therapy were covered. Chapter 1 of educational DVD was shown. PSG is medically necessary to determine the degree of and management of sleep apnea. Patient will be required to have a negative Sars Cov 2 nucleic acid amplification (SEAN) test prior to PAP titration. We discussed with the patient the impact of weight on: Sleep disordered breathing Hypertension JOSI Bilateral pes planus We discussed with the patient the benefit of PAP therapy on: Sleep disordered breathing Hypertension JOSI Educated the patient on sleep hygiene measures. Relaxing rituals to rest easy, understanding foods with positive and negative impact on sleep, creating a peaceful sleep environment, timing of exercise, using herbal sleep aids, and practicing sleep-friendly meditation were covered. To determine how much sleep is needed, the patient will assess where he falls on the spectrum, examine what lifestyle factors such as work schedules and stress are affecting the quality and quantity of sleep. In general, adults need 7-9 hours of sleep. Educated the patient regarding foods that promote sleep. These include but are not limited to cherries, bananas, toast, oatmeal, and warm milk. Educated the patient regarding foods and drinks to avoid before bedtime. These include but are not limited to aged cheese, chocolate, spicy foods, tomato-based sauces, soy, ginseng tea and processed meat. Advocated influenza vaccination annually and pneumonia vaccination RUDDY. Advocated weight loss through diet and exercise. Patient's ideal body weight according to height and gender is up to 185 lbs. Encouraged patient to adjust caloric intake to maintain/achieve ideal body weight, emphasizing on fruits, vegetables, whole grains, and fat-free or low-fat products. These include lean meats, poultry, fish, beans, eggs, and nuts and foods that are low in saturated fats, trans-fats, cholesterol, salt (sodium), and glycemic index. Stressed the importance of regular exercise up to the patient's capacity limits. In this case, we recommend 20 min daily walking, 2 days a week of resistance training. Patient to monitor BP daily and bring records to PCP for further management. Follow-up: 1 week after diagnostic sleep study [email or web address] Not available 07/12/2024 15:48:06 Plan of Treatment Reminders Order Date Submit Date Provider Last Modified By Organization Details Last Modified Time Details Appointments None recorded. Lab None recorded. Referral None recorded. Procedures None recorded. Surgeries None recorded. Imaging polysomno gram, diagnosti c, 6 yrs or older - Updated order. 024 [email or web address] [facility] ([facility] [address] [place] [address], [id number], 5 10:22:10 Medication Orders None recorded. Patient TargetsNo targets recorded. Patient InstructionsNo instructions recorded. Reason for Referral None Reported. Results Created Date Observation Date Name Description Value Unit Range Abnormal Flag Note LastModifiedBy Organization Detail LastModifiedTime 07/13/20 24 XR, ankle No observ ation record ed. [email or web address] Not Available 2023 16:39:39 Result Notes None recorded. Problems Name Problem SNOMED Code Status Onset Date Resolution Date Notes Provider Name and Address Organization Details Recorded Time Dysfunctio n of posterior tibial tendon of right foot 8297491919504 105 Active 2020 Not Available [facility] 3 23:58:59 Dysfunctio n of posterior tibial tendon of left foot 0644436348602 101 Active 2020 Not Available [facility] 3 23:58:59 Congenital pes planus 60276504 Active 2020 Not Available [facility] 3 23:58:59 Obstructiv e sleep apnea syndrome 91630902 Active 2023 Michael Hutchinson MD [address] [facility], [facility] [address], [place], [address] , [facility] Pets are family too 15:41:01 Notes:Medical History: COVID infection 06/2023 Obesity Hypertension JOSI Bilateral pes planus Procedure History: None Occupational History: Security Problem Notes None recorded. Procedures Surgical History None recorded. Imaging Results Imaging Date Name Status LastModified by Organiz ation Details LastModified Time 07/13/2024 XR, ankle completed [email or web address] Information no t available 07/13/2024 16:39:39 Procedure Notes None recorded. Medical Equipment None Reported. Allergies No known drug allergies Medications Name Sig Start Date Stop Date Status Note LastModified by Organization Details LastModified Time cetirizine 10 mg tablet TAKE 1 TABLET BY MOUTH EVERY DAY active Not Available Not Available No t Available ibuprofen 800 mg tablet active Not Available Not Available Not Available Lidocaine Viscous 2 % mucosal solution 07/12 completed Not Available Not Available Not Available valsartan 160 mg-hydrochl orothiazide 12.5 mg tablet TAKE 1 TABLET BY MOUTH EVERY DAY DIRECTED 07/12 completed Not Available Not Available Not Available clindamycin HCl 150 mg capsule TAKE 3 CAPSULES BY MOUTH THREE TIMES DAILY 07/04 completed Not Available Not Available Not Available valsartan 80 mg-hydrochl orothiazide 12.5 mg tablet TAKE 1 TABLET BY MOUTH EVERY DAY 07/12 completed Not Available Not Available Not Available hydrocodone 7.5 mg-acetamin ophen 325 mg tablet active Not Available Not Available No t Available cephalexin 500 mg capsule TAKE 1 CAPSULE BY MOUTH EVERY 8 HOURS FOR 10 DAYS 07/04 completed Not Available Not Available Not Available albuterol sulfate HFA 90 mcg/actuati on aerosol inhaler INHALE 2 PUFFS BY MOUTH EVERY 4 HOURS NEEDED FOR ASTHMA. active Not Available Not Available No t Available naproxen 500 mg tablet TAKE 1 TABLET BY MOUTH TWICE DAILY WITH FOOD 07/04 completed Not Available Not Available Not Available valsartan 320 mg-hydrochl orothiazide 25 mg tablet TAKE 1 TABLET BY MOUTH EVERY DAY IN THE MORNING FOR HIGH BLOOD PRESSURE active Not Available Not Available No t Available valsartan 320 mg-hydrochl orothiazide 12.5 mg tablet TAKE 1 TABLET BY MOUTH EVERY DAY 07/12 completed Not Available Not Available Not Available aspirin 81 mg capsule Take 1 capsule every day by oral route. active Not Available Not Available No t Available Paxlovid 300 mg (150 mg x 2)-100 mg tablets in a dose pack TAKE 3 TABLETS 2 TIMES A DAY 07/12 completed Not Available Not Available Not Available Vitals Date Recorded Body height Body mass index (BMI) Body weight Body temperature Heart rate Oxygen saturation Oxygen saturation in Arterial blood by Pulse oximetry Systolic blood pressure Diastolic blood pressure Provider Name and Address Organization Details Last Updated DateTime 180.34 cm 43.5 kg/m2 605386. 82 g 98.2 [degF] 78 /min 97 % 97 % 128 mm[Hg] 76 mm[Hg] Estrellita Farfan MA DC [employer] [facility] [employer] 14:52:54 Date Recorded Heart rate Respiratory rate Provider N chin and Address Organization Details Last Updated DateTime 07/12/2024 78 /min 15 /min Michael Hutchinson MD [address] [place] [address] [address], [address], [address] [facility] [employer] 07/12/2024 15:29:46 Social History Question Answer Notes LastModified by Organizat ion Details LastModified Time Tobacco Smoking Status Never Smoker Not Available [facility] 10/09/2022 23:57:00 What Is Your Level Of Alcohol Consumption? Occasional [id number] Information not available 10/09/2022 What Is Your Level Of Caffeine Consumption? Occasional [id number] Information not available 10/09/2022 In The 14 Days Before Symptom Onset, Have You Had Close Contact With A Laboratory-confirm ed COVID-19 While That Case Was Ill? No Information n ot available 07/12/2024 In The 14 Days Before Symptom Onset, Have You Had Close Contact With A Person Who Is Under Investigation For COVID-19 While That Person Was Ill? No Information not available 07/12/2024 Are You Currently Employed? Yes Information not available 07/12/2024 What Type Of Diet Are You Following? REGULAR Information n ot available 07/12/2024 Which Illicit Or Recreational Drugs Have You Used? Marijuana Information not available 07/12/2024 Do You Have An Electrostatic Air Filter? 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 No Information not available 07/12/2024 Do You Have A Humidifier? No Information not available 07/12/2024 Do You Have Moisture Problems In Your Home? No Information not available 07/12/2024 What Was The Date Of Your Most Recent Tobacco Screening? 07/12/2024 Information not available 07/12/2024 Have You Ever Been Counseled For Unhealthy Alcohol Use? No [id number] Information not available 10/09/2022 Do You Have Any Pets? No Information not available 07/12/2024 Do You Use Your Seat Belt Or Car Seat Routinely? Yes Information not available 07/12/2024 Do You Have Smoke And Carbon Monoxide Detectors In Your Home? Yes Information not available 07/12/2024 Are You Passively Exposed To Smoke? No Information no t available 07/12/2024 Do You Feel Stressed (tense, Restless, Nervous, Or Anxious, Or Unable To Sleep At Night)? [id number] Information not available 07/12/2024 Do You Use Any Illicit Or Recreational Drugs? Yes Information not available 07/12/2024 Do You Use Sunscreen Routinely? No Information not available 07/12/2024 Has Tobacco Cessation Counseling Been Provided? No [id number] Information not available 10/09/2022 Have You Recently Traveled Abroad? No Information not available 07/12/2024 Do You Have Any Dietary Restrictions? No Information not available 07/12/2024 Do You Or Have You Ever Used Any Other Forms Of Tobacco Or Nicotine? No [id number] Information not available 10/09/2022 Sex: Unknown Functional Status Question Answer Note LastModified by Organization D etails LastModified Time What is your exercise level? None Information not available 07/12/2024 Mental Status None recorded. Family History Relationship Description Onset Age of this Age Resolved Age Notes LastModified by Organization Details LastModified Time Son Obstructive sleep apnea syndrome [email or web address] Not available 2023 15:42:06 Son Autism spectrum disorder [email or web address] Not available 2023 15:44:32 Maternal Grandmother Dementia [email or web address] Not available 07/12 15:42:33 Paternal Uncle Diabetes mellitus [email or web address] Not available 2023 15:43:09 Paternal Uncle Multiple sclerosis [email or web address] Not available 2023 15:43:20 Maternal Aunt Diabetes mellitus [email or web address] Not available 2023 15:43:29 Mother Hypertensive disorder [email or web address] Not available 2023 15:43:55 Medical History Condition Response HYPERTENSION Y Past Encounters Encounter ID Performer Location Encounter Start Date Encounter Closed Date Diagnosis/Indication Diagnosis SNOMED-CT Code Diagnosis ICD10 Code Diagnosis Note [id number] [facility] [place] [address] [facility], [facility] [address] [place] [address] 05/31/2021 00:00:00 06/01/2021 09:29:37 [id number] Michael Hutchinson MD [facility] [address] [facility], [facility] [address] [place] [address] 07/12/2024 14:06:29 07/12/2024 16:53:31 Obstructive sleep apnea syndrome 95847377 G47.33 G47.30 G47.36 G47.61 Health Concerns Section Related Observation LastModified by Organization Detai ls LastModified Time None Recorded Concern Status LastModified by Organization Details LastModified Time None Recorded Advance Directives Directive None Recorded Payers None recorded. Notes Date Note Type Note Provider Name and Address Organization Details Recorded Time 07/12/2024 text/html Primary care/Referring provider: Luis Fernando Howell MD Patient works from 6 pm to 6 am. At home, the patient sleeps from 10 am to 12 pm, and then 1 pm to 4 pm. He wakes up with an alarm. Snoring: heavy, since . Snorting: yes Choking: no Coughing: yes Gasping: no Gagging: no Sighing: no Witnessed apnea: yes Twitching or jerking of leg(s), arm(s), body, head: yes Teeth grinding: no Teeth clenching: no Sleeptalking: no Sleepwalking: no Sleep crying: no Bedwetting: no Tongue/lip/gum/alberto k biting: no Sleeping with open mouth: yes Sleep paralysis: no Hypnagogic hallucinations: no Hypnopompic hallucinations: no Vivid dreams: no Difficulty with sleep onset: yes Difficulty with sleep maintenance: yes Sleep interruptions: nocturia x 3 Patient wakes up with: fatigue, xerostomia, headaches Daytime cataplexy: no Morning hypersomnolence: yes Afternoon hypersomnolence: yes Caffeine sources in diet: soda 2.5 bottles per day, chocolate 1/3 candy bar per day, energy drink 1 can of Red Bull per week Associated medical and psychiatric conditions: Congestive heart failure: no Coronary artery disease: no Myocardial infarction: no Hypertension: yes Stroke: no Bronchial asthma: no Chronic obstructive pulmonary disease: no Depression: no Bipolar disorder: no Anxiety: no Panic disorder: no Posttraumatic stress disorder: no Attention deficit and hyperactivity disorder: no Obsessive Compulsive disorder: no Schizophrenia: no Schizoaffective disorder: no Personality disorder: no Chronic analgesic use: no Chronic sedative/hypnotic use: no EPWORTH SLEEPINESS SCALE (ESS) CHANCE OF DOZING SCORE 0 = would never doze 1 = slight chance of dozing 2 = moderate chance of dozing 3 = high chance of dozing SITUATION AND CHANCE OF DOZING Sitting and reading - 1 Watching television - 2 Sitting inactive in a public place (e.g. a theater or meeting) - 2 As a passenger in a car for an hour without a break - 1 Lying down to rest in the afternoon when circumstances permit - 2 Sitting and talking to someone - 0 Sitting quietly after lunch without alcohol - 1 In a car, while stopped for a few minutes in the traffic - 1 TOTAL SCORE 10 Subjectively, patient has a moderate chance of dozing. Michael Hutchinson MD [address] [place] [address], [place] [address], [place], [address], [facility] 07/12/2024 15:51:03
--- OUTSIDE RECORDS SUMMARY | 2024-11-04 08:05 | XMS_ITS | CONTINUITY OF CARE DOCUMENT ---
Author Name malorie espana Address Unknown Organization [facility] Office Address [address] [facility] [address] [place] [address] Phone [phone] Care Team Providers Care Atg Architect Name Role Phone Ana Orellana MD Unavailable Ana Orellana MD Unavailable INSURANCE PROVIDERS Payer name Policy type / Coverage type [place] red libertarian ID [employer] [facility] Commercial insurance [employer] [id number]
== END 2024-11-05 06:58 | disposition home or self-care (01) ==
LOC: ANHCSM 07:58
PROVIDERS: PCP Internal Medicine Infectious Disease; Visit Provider Internal Medicine Pulmonary Disease
DX: G47.30 Sleep apnea, unspecified (principal)
CPT/HCPCS: 95810